=== PATIENT | male | born 1980 | race American Indian/Alaskan Native ===

== ENCOUNTER 2021-03-17 14:51 | Emergency (ER) | payer SELFPAY ==
[2021-03-17] MEDS ORDERED: Fluorescein 1 MG Ophth Strip EYERT ONE (15:11)
[2021-03-17] MEDS ORDERED: Tetracaine HCl/PF 0.5% 4 ML Bottle EYERT ONE (15:13)
--- NOTE | 2021-03-17 16:22 | EDM.PDOC ---
ED HPI GENERAL MEDICAL PROBLEM - General Chief Complaint: ENT Problem Stated Complaint: METAL SHAVING IN RIGHT EYE PER PT Time Seen by Provider: 03/17/21 15:20 Source of Information: Reports: Patient History Limitations: Reports: No Limitations - History of Present Illness INITIAL COMMENTS - FREE TEXT/NARRATIVE: 40 y/o M c/o metal in his R eye. Pt was driliing metal yesterday and felt something hit his eye. Has increased in pain and redness today. No meds, hx, allergies. Vision is reportedly burry in R eye. - Related Data Allergies Allergy/AdvReac Type Severity Reaction Status Date / Time No Known Allergies Allergy Verified 03/17/21 15:00 Home Meds: Home Meds . [No Known Home Meds] 03/17/21 [History] Past Medical History - Past Health History Medical/Surgical History: Denies Medical/Surgical History Social & Family History - Tobacco Use Tobacco Use Status *Q: Current Every Day Tobacco User Years of Tobacco use: 12 Packs/Tins Daily: 0.5 - Caffeine Use Caffeine Use: Reports: Coffee, Soda - Recreational Drug Use Recreational Drug Use: No ED ROS ENT - Review of Systems Review Of Systems: Comprehensive ROS is negative, except as noted in HPI. ED EXAM, ENT - Physical Exam Exam: See Below Exam Limited By: No Limitations General Appearance: Alert, No Apparent Distress Eye Exam: Bilateral Eye: Other (Perrl with conjugate gaze. Injected conjuntiva R eye. Matted R eye lashes. Perrl with conjugate gaze. 2 foreign bodies one center pupil R eye one medial to the pupil 3 oclock position) Respiratory/Chest: No Respiratory Distress, Lungs Clear, Normal Breath Sounds, No Accessory Muscle Use, Chest Non-Tender Cardiovascular: Normal Peripheral Pulses, Regular Rate, Rhythm, No Edema, No Gallop, No JVD, No Murmur, No Rub Course - Vital Signs Last Recorded V/S: Last Vital Signs Temp 97.7 F 03/17/21 15:01 Pulse 94 03/17/21 15:01 Resp 16 03/17/21 15:01 BP 118/80 03/17/21 15:01 Pulse Ox 99 03/17/21 15:01 - Orders/Labs/Meds Meds: Medications Discontinued Medications Generic Name Dose Route Start Last Admin Trade Name Freq PRN Reason Stop Dose Admin Fluorescein Sodium 1 mg 03/17/21 15:11 03/17/21 15:25 Fluorescein 1 Mg Ophth Strip EYERT 03/17/21 15:12 1 mg ONETIME ONE Administration Tetracaine HCl 1 ml 03/17/21 15:13 03/17/21 15:25 Tetracaine Hcl/Pf 0.5% 4 Ml Bottle EYERT 03/17/21 15:14 1 ml ASDIRECTED ONE Administration - Re-Assessments/Exams Free Text/Narrative Re-Assessment/Exam: 03/17/21 16:23 R eye flouricine stained and tetracaine applied. No corneal abrasions visible upon inspection. Foreign bodies removes with [place]y tool. Pt tolerated well. I will discharge him home with an RX for Gentamicin. And have him follow up in clinic next week. Departure - Departure Time of Disposition: 16:25 Disposition: Home, Self-Care 01 Condition: Fair Clinical Impression: Foreign body, eye Qualifiers: Encounter type: initial encounter Laterality: right Qualified Code(s): T15.91XA - Foreign body on external eye, part unspecified, right eye, initial encounter - Discharge Information *PRESCRIPTION DRUG MONITORING PROGRAM REVIEWED*: Not Applicable *COPY OF PRESCRIPTION DRUG MONITORING REPORT IN PATIENT ROSA MARIA: Not Applicable Instructions: Eye Foreign Body, [id number] Additional Instructions: RX: Gentamicin - one drop in R eye 4 times a day for 5 days. Follow up next week with your primary care facility to make sure your eye is healing well. If any new symptoms or concerns develop contact your primary care facility or return to the ER. Sepsis Event Note (ED) - Evaluation Sepsis Screening Result: No Definite Risk - Focused Exam Vital Signs: Vital Signs Temp Pulse Resp BP Pulse Ox 03/17/21 15:01 97.7 F 94 16 118/80 99
[2021-03-17] MEDS ORDERED: Gentamicin 0.3% Ophth Soln 5 ML Bottle EYERT SCH (21:00)
== END 2021-03-17 16:31 | disposition home or self-care (01) ==
LOC: DL.ED 14:51
DX: T15.01XA Foreign body in cornea, right eye, initial encounter (principal); Z72.0 Tobacco use
CPT/HCPCS: 65220; 99282-25